=== PATIENT | female | born 1935 | race Caucasian/White ===

== ENCOUNTER 2017-11-15 06:18 | Inpatient (IN) | payer MEDICARE, OTHER ==
[2017-11-15 06:20] VITALS: BP 85/39
[2017-11-15] MEDS ORDERED: LASIX 20 MG TAB20 MG (06:31)
[2017-11-15] MEDS ORDERED: ASPIR 8181 MG (06:31)
[2017-11-15] MEDS ORDERED: SYNTHROID75 MCG (06:32)
[2017-11-15] MEDS ORDERED: KEPPRA 500 MG500 M2 (06:32)
[2017-11-15] MEDS ORDERED: THEREMS-M1 EACH (06:33)
[2017-11-15] MEDS ORDERED: POTASSIUM20 (06:33)
[2017-11-15] MEDS ORDERED: OMEPRAZOLE 20 M20 M1 (06:33)
--- NOTE | 2017-11-15 06:52 | NUR ---
ASSUMMED CARE OF PATIENT FROM PARUL DARBY CURRENTLY ATTEMPTING TO PLACE A CENTRAL LINE.
[2017-11-15 07:34] LABS: HEMATOCRIT 46.5 % (37.0-47.0); MCH 28.9 pg (26.0-34.0); MCV 103.4 fL (80.0-100.0); MPV 8.8 fl. (7.2-11.1); NUCLEATED RBCS 0 /100WBC; PLATELET COUNT* 317 thou/uL (150-400); RDW-CV 17.7 % (10.5-14.5); WBC 30.1 thou/uL (4.0-11.0)
[2017-11-15 07:37] LABS: URINE BILIRUBIN NEGATIVE (Negative); URINE BLOOD TRACE (Negative); URINE CLARITY CLEAR; URINE COLOR YELLOW; URINE GLUCOSE-RANDOM 3+ (Negative); URINE LEUKOCYTES-REFLEX NEGATIVE (Negative); URINE NITRITE-REFLEX NEGATIVE (Negative); URINE PROTEIN TRACE (Negative); URINE SPECIFIC GRAVITY 1.025 (1.005-1.030); URINE UROBILINOGEN 0.2 E.U./dl (0.2-1.0)
[2017-11-15 07:38] LABS: URINE KETONES 3+ (Negative)
[2017-11-15 07:50] LABS: INR 1.1; PROTIME 10.7 Seconds (9.20-11.50); TROPONIN-I LEVEL 0.42 ng/mL (<0.06)
[2017-11-15 07:52] LABS: ALBUMIN 3.1 g/dL (3.4-5.0); CALCIUM 8.6 mg/dL (8.5-10.1); CREATININE 3.3 mg/dL (0.6-1.3); TOTAL BILIRUBIN 0.5 mg/dL (<0.1-1.0); TOTAL PROTEIN 6.6 g/dL (6.4-8.2)
[2017-11-15 08:04] LABS: ABSOLUTE EOSINOPHILS 0.3 thou/uL (0.0-0.7); ABSOLUTE LYMPHOCYTES 2.7 thou/uL (0.8-5.3); ABSOLUTE MONOCYTES 1.8 thou/uL (0.0-1.2); ABSOLUTE NEUTROPHILS 25.3 thou/uL (1.6-8.1)
[2017-11-15 08:05] LABS: ANISOCYTOSIS 1+; LARGE PLATELETS OCCASIONAL; PLATELET ESTIMATE ADEQUATE; POIKILOCYTOSIS 1+
[2017-11-15 08:08] LABS: POTASSIUM 6.1 mmol/L (3.5-5.1)
--- NOTE | 2017-11-15 08:41 | NUR ---
DR CASTLE TO EVALUATE
[2017-11-15 09:29] VITALS: BP 46/21
--- NOTE | 2017-11-15 17:26 | EKG ---
[place] [address] ELECTROCARDIOGRAM REPORT Name: PERRY HOLLINGSWORTH Room: [address] ADM IN .R.#: [id number] Admission: 11/15/17 Attend Phys: Rory Ball MD Discharge: Date of : 31 Report #: [id number] THIS REPORT FOR: //name// [facility] Test Date: 2017-11-15 Test Time: 07:05:28 Pat Name: PERRY HOLLINGSWORTH Department: Room: [facility] Gender: F Ems Driver: [facility] : 1935 Requested By: Aminata Stout Order Number: [id number] MD: Jr Almazan Measurements Intervals [place] Rate: 139 P: 5 PA: 267 QRS: 3 QRSD: 82 T: -15 QT: 311 QTc: 473 Interpretive Statements Supraventricular tachycardia Prolonged PA interval Consider right atrial enlargement Repolarization abnormality, prob rate related No previous ECG available for comparison Electronically Signed On 11-15-2017 17:26:34 CDT by Jr Almazan [email or web address] <ELECTRONICALLY SIGNED> By: Jr Almazan MD, [facility] 11/15/17 1726 4 4 Jr Almazan MD, [facility] /EPI
[2017-11-15 18:00] VITALS: BP 58/32
[2017-11-15 20:00] VITALS: BP 43/30
--- NOTE | 2017-11-15 20:00 | NUR ---
PATIENT UNRESPONSIVE, PATIENT FAMILY AT BED SIDE. BLOOD PRESSURE WAS LOW AT START OF SHIFT WITH HEART RATE IN 150'S, PATIENT WITH HIGH RESPIRATION RATE. PATINET FAMILY DID NOT WANT PAINENT TO BE TURNED, FALL PRECAUTIONS IN PLACE, BED ALARM ON, HOURLY ROUNDING OBSERVED.
--- NOTE | 2017-11-15 20:02 | NUR ---
I ASSUMED CARE OF THE PATIENT AN ADMIT FROM THE ED AT 0940. SHE IS NOT ALERT OR ORIENTED AND IS ONLY AROUSED BY PAINFUL STIMULATION UPON ARRIVAL. SHE BLINKS BUT IS NON VERBAL. BED IS IN THE LOW LOCKED POSITION AND CALL LIGHT IS IN REACH. HOURLY ROUNDING WAS COMPLETED AND PATIENT NEEDS WERE MET. FAMILY IS AT THE BEDSIDE AND WE HAVE DONE LOTS OF EDUCATION. MORPHINE AND ATIVAN ARE BEING GIVEN FOR COMFORT CARE. SHE HAS A RIGHT IJ. ORAL CARE IS DONE NEEDED, WARM BLANKETS HAVE BEEN GIVEN AND SHE HAS BEEN COMFORTABLE SINCE ARRIVAL. SHE NOW HAS NO RESPONSES AND IS NOT BLINKING. WILL CONTINUE TO MONITOR. PATIENT IS MED/SURG STATUS, BUT IS ON A MONITOR AT THE REQUEST OF THE FAMILY. NO TREATMENT WILL BE GIVEN, BUT THEY WANT TO KNOW WHEN SHE STARTS TO SHONDA DOWN.
--- NOTE | 2017-11-16 00:41 | NUR ---
[id number] PATIENT WITHOUT PLUSE, RESPIRTIONS AND WITHOUT BLOOD PRESSURE, PATIENT PRONOUNCE BY TWO RN'S. DOCTOR NOTIFIED,[facility] NOTIFIED, [facility] NOTIFIED, SON NEXT TO KIN NOIFIED. [employer] WORKSHEET COMPLETED,
--- NOTE | 2017-11-16 01:29 | NUR ---
HOME TOOK PATIENT BODY AT 11/16/17 0130.
== END 2017-11-15 22:58 | DRG 871 ==
LOC: M.ERS 06:18 → M.TBA-ER 08:46 → M.2W 08:46
PROVIDERS: Emergency Medicine; ADMIT Internal Medicine
PROC: 02H633Z Insertion of Infusion Device into Right Atrium, Percutaneous Approach (ICD-10-PCS; principal; 2017-11-15)
DX: A41.9 Sepsis, unspecified organism (principal); E11.00 Type 2 diabetes mellitus with hyperosmolarity without nonketotic hyperglycemic-hyperosmolar coma (NKHHC); R65.21 Severe sepsis with septic shock; J69.0 Pneumonitis due to inhalation of food and vomit; J96.00 Acute respiratory failure, unspecified whether with hypoxia or hypercapnia; E43 Unspecified severe protein-calorie malnutrition; N17.0 Acute kidney failure with tubular necrosis; G93.40 Encephalopathy, unspecified; I21.4 Non-ST elevation (NSTEMI) myocardial infarction; K21.9 Gastro-esophageal reflux disease without esophagitis; C43.9 Malignant melanoma of skin, unspecified; Z66 Do not resuscitate; I10 Essential (primary) hypertension; E11.51 Type 2 diabetes mellitus with diabetic peripheral angiopathy without gangrene; R29.810 Facial weakness; E87.5 Hyperkalemia; E03.9 Hypothyroidism, unspecified; Z92.21 Personal history of antineoplastic chemotherapy; Z79.82 Long term (current) use of aspirin; Z79.899 Other long term (current) drug therapy; Z88.0 Allergy status to penicillin; Z88.2 Allergy status to sulfonamides; Z88.5 Allergy status to narcotic agent; Z51.5 Encounter for palliative care